=== PATIENT | female | born 1950 | race African-American/Black ===

== ENCOUNTER 2017-04-17 08:17 | Emergency (ER) | payer OTHER, BC ==
[2017-04-17 08:25] VITALS: TEMP 98.2
--- NOTE | 2017-04-17 09:12 | EDPHY ---
H & P Time Seen by Provider: 04/17/17 09:11 HPI/ROS: Chief complaint. On dialysis, tube infected HPI. Patient is 66-year-old female visiting from [place] on peritoneal dialysis. She noted slow full 0 with her dialysis catheter last night. Apparently she called the help line and the reason for the slow flow was not figured out and she was referred to the ER. The catheter was placed about 1 year ago. She has had some slight pain around the catheter for 1 week but no pain now. There has been also slight drainage of fluid the last few days which apparently is not normal. She was on antibiotics about 1 month ago in [place] for apparent infection around the dialysis catheter. She has had no fever. No vomiting or diarrhea. She really has no complaints now. ROS Constitutional. no fever/chills, no weakness Eyes. no problems with vision ENT. no sore throat, no nasal drainage Cardiovascular. no chest pain Respiratory. no shortness of breath, no cough Abdominal. no abdominal pain, no nausea/vomiting, no diarrhea; slow flow from dialysis catheter and slight drainage of fluid from around the CT . no problems urinating MS. no calf pain/swelling, no neck/back pain, no joint pain Skin. no rash Lymph. no swollen glands Neuro. no headache, no dizziness, no difficulty walking or with speech Past Medical/Surgical History: Past medical history is significant for chronic renal failure, hypertension, diabetes Social History: Single, nonsmoker, no alcohol Smoking Status: Never smoked Physical Exam: General Appearance: Alert well-developed female no distress vital signs initially show blood pressure 204/113 but on recheck 195/85. She is afebrile Eyes: Pupils equal and round no pallor or injection. ENT, Mouth: Mucous membranes are moist. Respiratory: There are no retractions, lungs are clear to auscultation. Cardiovascular: Regular rate and rhythm. Gastrointestinal: Abdomen is soft and nontender, no masses, bowel sounds normal. There is slight drainage from around the catheter Neurological: Awake and alert, sensory and motor exams grossly normal. Skin: Warm and dry, no rashes. Musculoskeletal: Neck is supple nontender. Extremities symmetrical, full range of motion. Psychiatric: Patient is oriented X 3, there is no agitation. Constitutional: Initial Vital Signs Temperature (C) 36.8 C 04/17/17 08:21 Heart Rate 72 04/17/17 08:21 Respiratory Rate 18 04/17/17 08:21 Blood Pressure 204/113 H 04/17/17 08:21 O2 Sat (%) 94 04/17/17 08:21 O2 Delivery Mode Room Air Allergies/Adverse Reactions: No Known Allergies Allergy (Unverified 04/17/17 08:20) Home Medications: Medication Instructions Recorded Aspirin [Aspirin 81mg (*)] 81 mg PO DAILY 04/17/17 Calcitriol [Calcitriol (*)] 0.25 mcg PO DAILY 04/17/17 Carvedilol [Coreg (*)] 3.125 mg PO BIDMEAL 04/17/17 Ciprofloxacin HCl 250 mg PO 04/17/17 Furosemide [Lasix] 40 mg PO 04/17/17 Insulin Aspart Prot/Insuln Asp 100 unit SQ 04/17/17 [Novolog Mix 70-30 Flexpen Syrn] Insulin Glargine,Hum.rec.anlog 100 unit SQ 04/17/17 [Lantus Solostar] Lanthanum Carbonate [Fosrenol] 500 mg PO TID 04/17/17 Medical Decision Making - Diagnostics Imaging Results: Imaging Impressions Abdomen X-Ray 04/17/17 10:44 Impression: 1. Free air most likely related to peritoneal dialysis. If pain persists and clinical suspicion warrants, consider CT. 2. No definite acute findings. ED Course/Re-evaluation: consult and discussion with Dr. Dawson--he revoked recommends KUB and then evaluation by interventional radiology I consulted and discussed the case with , interventional radiology, who will assess the peritoneal dialysis catheter Patient returns and is re-evaluated at 3:05 p.m.. The patient had the PD catheter flushed and instilled with tPA. They tell me it is now working. Re-evaluation the patient has no symptoms and no abdominal pain. She and I discussed the treatment plan and interventional radiology. She is encouraged to return at any point while she is visiting [place] for further problems with her catheter. She expresses understanding and agreement Differential Diagnosis: Dialysis catheter that is not working. In consultation with Nephrology was felt to be a mechanical obstruction. The mechanical obstruction is cleared by interventional radiology and should be good to go - Data Points Laboratory Results: Laboratory Results 04/17/17 09:30 04/17/17 09:30 04/17/17 04/17/17 09:30 09:30 WBC 7.96 10^3/uL 10^3/uL (3.80-9.50) RBC 3.80 10^6/uL L 10^6/uL (4.18-5.33) Hgb 11.3 g/dL L g/dL (12.6-16.3) Hct 36.4 % L % (38.0-47.0) MCV 95.8 fL fL (81.5-99.8) MCH 29.7 pg pg (27.9-34.1) MCHC 31.0 g/dL L g/dL (32.4-36.7) RDW 13.4 % % (11.5-15.2) Plt Count 273 10^3/uL 10^3/uL (150-400) MPV 11.0 fL fL (8.7-11.7) Neut % (Auto) 65.8 % % (39.3-74.2) Lymph % (Auto) 21.6 % % (15.0-45.0) [place] % (Auto) 9.4 % % (4.5-13.0) Eos % (Auto) 2.4 % % (0.6-7.6) Baso % (Auto) 0.3 % % (0.3-1.7) Nucleat RBC Rel Count 0.0 % % (0.0-0.2) Absolute Neuts (auto) 5.24 10^3/uL 10^3/uL (1.70-6.50) Absolute Lymphs (auto) 1.72 10^3/uL 10^3/uL (1.00-3.00) Absolute Monos (auto) 0.75 10^3/uL 10^3/uL (0.30-0.80) Absolute Eos (auto) 0.19 10^3/uL 10^3/uL (0.03-0.40) Absolute Basos (auto) 0.02 10^3/uL 10^3/uL (0.02-0.10) Absolute Nucleated RBC 0.00 10^3/uL 10^3/uL (0-0.01) Immature Gran % 0.5 % % (0.0-1.1) Immature Gran # 0.04 10^3/uL 10^3/uL (0.00-0.10) Sodium 142 mEq/L mEq/L (134-144) Potassium 4.6 mEq/L mEq/L (3.5-5.2) Chloride 106 mEq/L mEq/L (97-110) Carbon Dioxide 22 mEq/l mEq/l (22-31) Anion Gap 14 mEq/L mEq/L (8-16) BUN 79 mg/dL H mg/dL (7-23) Creatinine 10.7 mg/dL H* mg/dL (0.6-1.0) Estimated GFR 4 Glucose 141 mg/dL H mg/dL (70-100) Calcium 8.9 mg/dL mg/dL (8.5-10.4) Departure - Departure Disposition: Home, Routine, Self-Care Clinical Impression: Peritoneal dialysis catheter blocked Condition: Good Instructions: Peritoneal Dialysis Catheter Care (ED) Additional Instructions: Do your regular dialysis tonight. Return for abdominal pain, fever or the catheter not working. Follow up with your fashion marketer upon return home to [place] I am giving you the name of the fashion marketer, Dr. Dawson, whom I spoke and consulted with in the ER today Referrals: UNKNOWN,NAME [Other] - As per Instructions Federico Dawson MD [Medical Doctor] - As per Instructions
[2017-04-17 09:42] LABS: % IMMATURE GRANULYOCYTES 0.5 % (0.0-1.1); ABSOLUTE IMMATURE GRANULOCYTES 0.04 10^3/uL (0.00-0.10); ADD DIFF? NO; ADD MORPH? NO; ADD SCAN? NO; ATYPICAL LYMPHOCYTE FLAG 0 (0-99); FRAGMENT RBC FLAG 0 (0-99); HEMATOCRIT 36.4 % (38.0-47.0); HEMOGLOBIN 11.3 g/dL (12.6-16.3); LEFT SHIFT FLG 0 (0-99); LIPEMIA HEMOLYSIS FLAG 80 (0-99); MEAN CELL HEMOGLOBIN 29.7 pg (27.9-34.1); MEAN CELL VOLUME 95.8 fL (81.5-99.8); PLATELET CLUMPS FLAG 0 (0-99); PLATELET COUNT 273 10^3/uL (150-400); RED CELL DISTRIBUTION WIDTH 13.4 % (11.5-15.2)
[2017-04-17 10:09] LABS: ANION GAP 14 mEq/L (8-16); CALCIUM 8.9 mg/dL (8.5-10.4); CARBON DIOXIDE 22 mEq/l (22-31); CHLORIDE 106 mEq/L (97-110); GLOMERULAR FILTRATION RATE 4; GLUCOSE 141 mg/dL (70-100); POTASSIUM 4.6 mEq/L (3.5-5.2); SODIUM 142 mEq/L (134-144)
[2017-04-17 10:12] LABS: CREATININE 10.7 mg/dL (0.6-1.0)
[2017-04-17] MEDS ORDERED: ALTEPLASE 2 MG VIAL ONE (13:03)
[2017-04-17] MEDS ORDERED: IOPAMIDOL (ISOVUE-300) 150 ML BTL ONE (14:18)
[2017-04-17 15:23] VITALS: BP 189/95; PULSE 82; RESP 16; O2SAT 94
== END 2017-04-17 15:23 | disposition home or self-care (01) ==
DX: T85.691A Other mechanical complication of intraperitoneal dialysis catheter, initial encounter (principal); I12.9 Hypertensive chronic kidney disease with stage 1 through stage 4 chronic kidney disease, or unspecified chronic kidney disease; N18.9 Chronic kidney disease, unspecified; E11.9 Type 2 diabetes mellitus without complications; Z79.4 Long term (current) use of insulin; Z79.82 Long term (current) use of aspirin; Y73.2 Prosthetic and other implants, materials and accessory gastroenterology and urology devices associated with adverse incidents
CPT/HCPCS: 74000; 76000; 99284; J2997; Q9967